=== PATIENT | female | born 1965 | race African-American/Black ===

== ENCOUNTER 2017-03-25 07:17 | Inpatient (IN) | payer OTHER ==
[2017-03-25 07:33] VITALS: BMI 48.9
--- NOTE | 2017-03-25 07:52 | PDOC ---
Attending Attestation - Resident Resident Name: JasonelizabethSyedRamon - ED Attending Attestation I have performed the following: I have examined & evaluated the patient, The case was reviewed & discussed with the resident, I agree w/resident's findings & plan, Exceptions are as noted - HPI HPI: 03/25/17 07:51 The patient is a 51-year-old female with a significant past medical history of HIV (on HAART with recent undetectable viral load), who presents to the emergency department with left lower extremity painful paresthesias for two months. No weakness. No fever. No rash. She states that the pain involves the entire left lower extremity extending from the toes to below the calf. It began gradually, and has been increasing in intensity. It is now constant. It is exacerbated by walking. It is relieved by rest, including hanging her foot off of the edge of the bed. She denies recent palpitations. 03/25/17 08:11 - Physicial Exam PE: 03/25/17 07:52 The patient is well-appearing and in no acute distress Vitals noted Left lower extremity is cooler than right lower extremity Capillary refill is slightly delayed in left lower extremity as compared to right lower extremity I feel that there is subtle decrease in hair growth on the left lower extremity as compared to the right lower extremity Dorsal pedal and posterior tibial pulses are not palpable on the right or left Faint doppler signals present on right but not left DP and PT 03/25/17 08:19 03/25/17 08:24 - Medical Decision Making 03/25/17 08:00 She has signs and symptoms consistent with intermittent claudication I do not this she has an acute occlusion This is likely worsening on chronic disease Will not heparinize at this time Will obtain labs and LE US 03/25/17 09:51 Labs noted including normal bicarbonate, normal anion gap, normal lactic acid, mildly elevated CK Her labs are not consistent with acute occlusion causing significant limb ischemia Will await US 03/25/17 10:16 Ultrasound noted, indicative of peripheral arterial occlusion in the posterior tibial artery Will obtain CTA to better define Will admit to medicine Vascular surgery is aware Clinical impression: Left lower extremity peripheral arterial occlusive disease with minimal limb ischemia Case discussed in detail with admitting provider including history, physical exam and ancillary studies. Admitting physician has assumed care for the patient, will follow all pending diagnostics and will complete the evaluation and treatment. 03/25/17 10:31 03/25/17 10:47 EKG noted: Normal sinus rhythm at 78, normal axis, normal intervals, no ST changes Discharge Disposition - Diagnosis Peripheral arterial occlusive disease - Discharge Dispostion Admit: Yes - Referrals - Patient Instructions - Post Discharge Activity
--- NOTE | 2017-03-25 08:35 | PDOC ---
History of Present Illness <Rolando Goncalves - Last Filed: 03/25/17 09:16> - General History Source: Patient Exam Limitations: No Limitations - History of Present Illness Initial Comments: 03/25/17 08:29 Ms. Oneal is a 51 year old female with a significant PMH of HIV, diabetes, and 38 pack year smoking history who presents to the emergency department with 2 months of burning pain to the top of her LLE. She reports pain only with movement and that it is fine at rest. Pain is alleviated by hanging her foot off of the bed. The patient denies chest pain, shortness of breath, headache and dizziness. Denies fever, chills, nausea, vomit, diarrhea and constipation. Denies dysuria, frequency, urgency and hematuria. Allergies: Shellfish Social history: years PCP: Dr. Galeas in the [place] 03/25/17 08:36 Timing/Duration: intermittent Severity: moderate Modifying Factors: improves with: movement Associated Symptoms: reports: denies symptoms Aspirin Received prior to arrival: Yes: no aspirin today Asa Contraindications(Core Measure): Yes: Other Beta Soco Contraindications(Core Measure): Yes: Not Prescribed Beta Soco Given by EMS(Core Measure): No Beta Soco Taken at Home(Core Measure): No Beta [place] Not Indicated at this Time(Core Measure): No <Ramon Xavier - Last Filed: 03/25/17 11:27> - General Chief Complaint: Pain Stated Complaint: LFT FOOT PAIN, SWELLING Time Seen by Provider: 03/25/17 07:42 Past History <Rolando Goncalves - Last Filed: 03/25/17 09:16> - Travel Traveled outside of the country in the last 30 days: No - Past Medical History Anemia: No Asthma: No Cancer: No Cardiac Disorders: No CVA: No COPD: No CHF: No Dementia: No Diabetes: No GI Disorders: No Disorders: No HTN: Yes Hypercholesterolemia: Yes HIV: Yes Liver Disease: No Seizures: No Thyroid Disease: No - Psycho/Social/Smoking Cessation Hx Suicidal Ideation: No Smoking History: Current every day smoker Have you smoked in the past 12 months: Yes Number of Cigarettes Smoked Daily: 20 Cigars Per Day: 0 Information on smoking cessation initiated: Yes 'Breaking Loose' booklet given: 03/25/17 Hx Alcohol Use: No Drug/Substance Use Hx: No Substance Use Type: None Hx Substance Use Treatment: No <Ramon Xavier - Last Filed: 03/25/17 11:27> - Past Medical History Allergies/Adverse Reactions: Allergies Allergy/AdvReac Type Severity Reaction Status Date / Time Shellfish Allergy Severe Swelling Verified 03/25/17 07:24 Home Medications: Ambulatory Orders Atorvastatin Ca [Lipitor] 20 mg PO HS 03/25/17 Bupropion HCl [Wellbutrin -] 100 mg PO BID 03/25/17 Calcium Carbonate/Vitamin D3 [Oyster Shell 500-Vit D3 200 Tb] 1 each PO DAILY Cholecalciferol (Vitamin D3) [Vitamin D3] 2,000 unit PO DAILY 03/25/17 Darunavir/Cobicistat [Prezcobix 800 mg-150 mg Tablet] 1 each PO DAILY 03/25/17 Emtricitabine/Tenofovir [Truvada] 1 tab PO DAILY 03/25/17 Ferrous Sulfate 325 mg PO DAILY 03/25/17 Folic Acid 0.8 mg PO DAILY 03/25/17 Mirtazapine 15 mg PO DAILY 03/25/17 Omeprazole 20 mg PO DAILY 03/25/17 Zolpidem Tartrate [Ambien] 10 mg PO HS 03/25/17 Review of Systems - Review of Systems Able to Perform ROS?: Yes Comments:: 03/25/17 08:37 GENERAL/CONSTITUTIONAL: No fever or chills. No weakness. HEAD, EYES, EARS, NOSE AND THROAT: No change in vision. No ear pain or discharge. No sore throat. CARDIOVASCULAR: No chest pain or shortness of breath RESPIRATORY: No cough, wheezing, or hemoptysis. GASTROINTESTINAL: No nausea, vomiting, diarrhea or constipation. GENITOURINARY: No dysuria, frequency, or change in urination. MUSCULOSKELETAL: +LLE pain with movement, alternating cold and burning SKIN: No rash NEUROLOGIC: No headache, vertigo, loss of consciousness, or change in strength/ sensation. ENDOCRINE: No increased thirst. No abnormal weight change HEMATOLOGIC/LYMPHATIC: Reported iron deficiency, no easy bleeding or history of blood clots. ALLERGIC/IMMUNOLOGIC: Shellfish allergy. 03/25/17 09:22 <Ramon Xavier - Last Filed: 03/25/17 11:27> *Physical Exam - Vital Signs Last Vital Signs Temp Pulse Resp BP Pulse Ox 98 F 91 H 18 155/92 97 03/25/17 07:22 03/25/17 07:22 03/25/17 07:22 03/25/17 07:22 03/25/17 07:22 <Rolando Goncalves - Last Filed: 03/25/17 09:16> - Vital Signs Last Vital Signs Temp Pulse Resp BP Pulse Ox 98 F 91 H 18 155/92 97 03/25/17 07:22 03/25/17 07:22 03/25/17 07:22 03/25/17 07:22 03/25/17 07:22 - Physical Exam Comments: 03/25/17 08:40 GENERAL: Awake, alert, and fully oriented, in no acute distress HEAD: No signs of trauma, normocephalic, atraumatic EYES: PERRLA, EOMI, sclera anicteric, conjunctiva clear ENT: Auricles normal inspection, hearing grossly normal, nares patent, oropharynx clear without exudates. Moist mucosa NECK: Normal ROM, supple, no lymphadenopathy, JVD, or masses LUNGS: No distress, speaks full sentences, clear to auscultation bilaterally HEART: Regular rate and rhythm, normal S1 and S2, no murmurs, rubs or gallops, peripheral pulses normal and equal bilaterally. ABDOMEN: Soft, nontender, normoactive bowel sounds. No guarding, no rebound. No masses EXTREMITIES: +LLE colder to touch than right and less hair than right. Doppler successful on RLE but unable to obtain pulse on LLE., Normal range of motion, no edema. No clubbing or cyanosis. NEUROLOGICAL: Cranial nerves II through XII grossly intact. Normal speech, normal gait, no focal sensorimotor deficits SKIN: Warm, Dry, normal turgor, no rashes or lesions noted. 03/25/17 09:22 <Ramon Xavier - Last Filed: 03/25/17 11:27> ED Treatment Course - LABORATORY CBC & Chemistry Diagram: 03/25/17 08:50 03/25/17 08:50 - ADDITIONAL ORDERS Additional order review: 03/25/17 08:50 RBC 3.64 MCV 84.5 MCHC 32.9 RDW 20.9 H D MPV 8.3 D Neutrophils % 51.9 Lymphocytes % 36.0 D Monocytes % 8.3 Eosinophils % 3.0 Basophils % 0.8 <Rolando Goncalves - Last Filed: 03/25/17 09:16> - LABORATORY CBC & Chemistry Diagram: 03/25/17 08:50 03/25/17 08:50 - RADIOLOGY Radiograph Interpretation: 03/25/17 11:26 IMPRESSION: Normal duplex arterial ultrasound in the right lower extremity. Normal duplex arterial ultrasound in the left lower extremity from the common femoral down to the popliteal artery. Questionable visualization of the left posterior tibial artery with no flow seen in the expected anatomic area of the posterior tibial artery for which further evaluation is recommended to rule out occlusion. A CT angiogram of the lower extremities would be the study of choice in view of the clinical history CT ordered, admit to surgery ordered. <Ramon Xavier - Last Filed: 03/25/17 11:27> Medical Decision Making - Medical Decision Making 03/25/17 09:14 Dr. Jayson Anugiano was called regarding the patient at 9:14am. [phone] <Rolando Goncalves - Last Filed: 03/25/17 09:16> - Medical Decision Making 03/25/17 08:43 Patient reports 2 months burning sensation with walking but no pain at rest. History of HIV, smoking, HTN, borderline diabetes. Initial thoughts peripheral neuropathy vs. PVD. Doppler unable to capture pulse on LLE. RLE weak pulse. Will order labs for DM / BMP / Lactate US Ordered and Vascular surgery consulted. Surgery asked for medicine admit, CT. Will follow recommendations. 03/25/17 09:50 Labs returned - non-anion gap metabolic acidosis noted. Normal bicarb, normal anion gap, normal lactic acid. Mildly elevated CK. Labs not consistent with acute ischemic event. 03/25/17 10:21 US results: IMPRESSION: Normal duplex arterial ultrasound in the right lower extremity. Normal duplex arterial ultrasound in the left lower extremity from the common femoral down to the popliteal artery. Questionable visualization of the left posterior tibial artery with no flow seen in the expected anatomic area of the posterior tibial artery for which further evaluation is recommended to rule out occlusion. A CT angiogram of the lower extremities would be the study of choice in view of the clinical history CT ordered, admit to surgery ordered. <Ramon Xavier - Last Filed: 03/25/17 11:27> *DC/Admit/Observation/Transfer <Rolando Goncalves - Last Filed: 03/25/17 09:16> - Attestations Physician Attestion: 03/25/17 09:23 I, Dr. Ramon Xavier, attest that this document has been prepared under my direction and personally reviewed by me in its entirety. I further attest, that it accurately reflects all work, treatment, procedures and medical decision -making performed by me. <Ramon Xavier - Last Filed: 03/25/17 11:27> Diagnosis at time of Disposition: Peripheral arterial occlusive disease - Referrals
[2017-03-25 08:59] LABS: BASOPHIL 0.8 % (0-2.0); MCH 27.8 pg (25.7-33.7); MCHC 32.9 g/dl (32.0-36.0); MEAN CELL VOLUME 84.5 fl (80-96); MEAN PLT VOLUME 8.3 fl (7.5-11.1); NEUTROPHILS 51.9 % (42.8-82.8); PLATELET COUNT 303 K/MM3 (134-434); RDW 20.9 % (11.6-15.6); WHITE BLOOD COUNT 4.8 K/mm3 (4.0-10.0)
[2017-03-25 09:22] LABS: ALBUMIN 3.4 g/dl (3.4-5.0); ANION GAP 6 (8-16); BILIRUBIN,TOTAL 0.2 mg/dL (0.2-1.0); CALCIUM 8.9 mg/dL (8.5-10.1); CO2 26 mmol/L (21-32); GLUCOSE,RANDOM 99 mg/dL (74-106); MAGNESIUM 1.9 mg/dL (1.8-2.4); SGOT/AST 23 U/L (15-37); SGPT/ALT 27 U/L (12-78); TOT PROT 7.4 g/dl (6.4-8.2)
[2017-03-25 09:25] LABS: ALK PHOS 111 U/L (45-117); TROPONIN I < 0.02 ng/ml (0.00-0.05)
[2017-03-25] MEDS ORDERED: SODIUM CHLORIDE 1,000 ML IV SCH (10:45)
[2017-03-25] MEDS ORDERED: ONDANSETRON 4 MG/2 ML VIAL IVPB PRN (12:47)
[2017-03-25] MEDS ORDERED: morphine CARPU-JECT 4 MG/1 ML DISP.SYRIN IVPUSH PRN (12:47)
[2017-03-25] MEDS ORDERED: SODIUM CHLORIDE 0.45% 1,000 ML IV SCH (13:00)
[2017-03-25] MEDS ORDERED: HEPARIN - 25,000 UNIT in SODIUM CHLORIDE 495 ML IV SCH (13:00)
[2017-03-25] MEDS ORDERED: INSULIN SLIDING SCALE (NOVOLOG) 1 VIAL SQ SCH ×2 (13:00→16:30)
[2017-03-25] MEDS ORDERED: HEPARIN NA (PORCINE) 5,000 UNITS/ML 1ML VIAL IVPUSH PRN ×2 (13:00)
[2017-03-25 13:18] LABS: ANISOCYTOSIS 1+; PLATELET ESTIMATE ADEQUATE (NORMAL)
--- NOTE | 2017-03-25 13:25 | HP ---
Admitting History and Physical - Primary Care Physician PCP: none - Admission Chief Complaint: Left lower extremity leg pain History of Present Illness: 51F with history of HTN HLD DM Smoker depression DORY presents to the ED with about a 6 month history of worsening LLE pain. Patient states worse when she walks and better with rest and elevation. She deneis nausea fever chills chest pain or shortness of breath. History Source: Patient Limitations to Obtaining History: No Limitations - Past Medical History ...LMP: 09/28/11 Additional Past Medical History: as listed above - Smoking History Smoking history: Current every day smoker Have you smoked in the past 12 months: Yes Aproximately how many cigarettes per day: 20 - Alcohol/Substance Use Hx Alcohol Use: No Home Medications - Allergies Allergies/Adverse Reactions: Allergies Allergy/AdvReac Type Severity Reaction Status Date / Time Shellfish Allergy Severe Swelling Verified 03/25/17 07:24 - Home Medications Home Medications: Ambulatory Orders Atorvastatin Ca [Lipitor] 20 mg PO HS 03/25/17 Bupropion HCl [Wellbutrin -] 150 mg PO BID 03/25/17 Calcium Carbonate/Vitamin D3 [Oyster Shell 500-Vit D3 200 Tb] 1 each PO DAILY Cholecalciferol (Vitamin D3) [Vitamin D3] 2,000 unit PO DAILY 03/25/17 Darunavir/Cobicistat [Prezcobix 800 mg-150 mg Tablet] 1 each PO DAILY 03/25/17 Emtricitabine/Tenofovir [Truvada] 1 tab PO DAILY 03/25/17 Ferrous Sulfate 325 mg PO DAILY 03/25/17 Folic Acid 0.8 mg PO DAILY 03/25/17 Mirtazapine 15 mg PO DAILY 03/25/17 Omeprazole 40 mg PO DAILY 03/25/17 Zolpidem Tartrate [Ambien] 10 mg PO HS 03/25/17 Physical Examination Vital Signs: Vital Signs Temperature 98 F 03/25/17 07:22 Pulse Rate 84 03/25/17 12:01 Respiratory Rate 18 03/25/17 12:01 Blood Pressure 145/87 03/25/17 12:01 O2 Sat by Pulse Oximetry (%) 98 03/25/17 12:01 Constitutional: Yes: No Distress, Obese Eyes: Yes: Conjunctiva Clear HENT: Yes: Atraumatic, Normocephalic Neck: Yes: Supple, Trachea Midline Cardiovascular: Yes: Regular Rate and Rhythm Respiratory: Yes: Regular, CTA Bilaterally Gastrointestinal: Yes: Soft Extremities: Yes: Delayed Capillary Refill (LLE), Other (tenderness of LLE foot to distal calf. slightly cooler LLE vs RLE.) Edema: No ...Motor Strength: WNL Labs: CBC, BMP 03/25/17 08:50 03/25/17 08:50 Imaging - Results Chest X-ray: Report Reviewed, Image Reviewed Ultrasound: Report Reviewed Assessment/Plan 51F with multiple medical probelsm presents to ED with concern for critical limb ischemia Problem List: critical limb ischemia DM HTN Smoker HLD Depression DORY Admit to inpatient services diabetic diet fingersticks ACHS Vascular surgery consult appreciated-for OR tomorrow NPO past midnight for OR tomorrow heparin gtt CTA Aorta with lower extremity run off Send type and screen restart home meds pain control Case discussed with medical team and attending full H&P to follow Visit type - Emergency Visit Emergency Visit: Yes Care time: The patient presented to the Emergency Department on the above date and was hospitalized for further evaluation of their emergent condition. - New Patient This patient is new to me today: Yes Date on this admission: 03/25/17 - Critical Care Critical Care patient: No
[2017-03-25] MEDS ORDERED: oxyCODONE HCL 5 MG TABLET PO PRN (13:53)
--- NOTE | 2017-03-25 14:23 | HP ---
CHIEF COMPLAINT: Left foot pain PCP: Dr. Natarajan HISTORY OF PRESENT ILLNESS: 51 y.o. F with PMH of HTN, HLD, 30 pack smoking hx, and HIV+ on HAART therapy complaining of 6-7 months of LLE pain that began in her toes and gradually travelled up to her lower calf. Pain has been increasing in intensity. She states at worst it's a 10/10 and at best a 5/10. Patient endorses improvement of the pain when elevating her LLE and states pain is worse when ambulating. She states she can walk about 1 block prior to the pain starting and has to wait 5 minutes before resuming walking. Patient denies any wounds or ulcers on the feet, any history of PAD, or any prior procedures done to the LLE. PAST MEDICAL HISTORY: HIV+ on HAART, HTN, HLD, DORY, 30 pack year smoker, Depression, and Chronic knee and back pain PAST SURGICAL HISTORY: None Social History: Smokin ppd for 30-40 years Alcohol: None Drugs: None Family History: None Allergies: NKDA Shellfish Allergy (Severe, Verified 03/25/17 07:24) Swelling HOME MEDICATIONS: Home Medications Medication Instructions Recorded Atorvastatin Ca [Lipitor] 20 mg PO HS 03/25/17 Bupropion HCl [Wellbutrin -] 150 mg PO BID 03/25/17 Calcium Carbonate/Vitamin D3 1 each PO DAILY 03/25/17 [Oyster Shell 500-Vit D3 200 Tb] Cholecalciferol (Vitamin D3) 2,000 unit PO DAILY 03/25/17 [Vitamin D3] Darunavir/Cobicistat [Prezcobix 1 each PO DAILY 03/25/17 800 mg-150 mg Tablet] Emtricitabine/Tenofovir [Truvada] 1 tab PO DAILY 03/25/17 Ferrous Sulfate 325 mg PO DAILY 03/25/17 Folic Acid 0.8 mg PO DAILY 03/25/17 Mirtazapine 15 mg PO DAILY 03/25/17 Omeprazole 40 mg PO DAILY 03/25/17 Zolpidem Tartrate [Ambien] 10 mg PO HS 03/25/17 REVIEW OF SYSTEMS CONSTITUTIONAL: Absent: fever, chills, diaphoresis, generalized weakness, malaise, loss of appetite, weight change HEENT: Absent: rhinorrhea, nasal congestion, throat pain, throat swelling, difficulty swallowing, mouth swelling, ear pain, eye pain, visual changes CARDIOVASCULAR: Absent: chest pain, syncope, palpitations, irregular heart rate, lightheadedness , peripheral edema RESPIRATORY: Absent: cough, shortness of breath, dyspnea with exertion, orthopnea, wheezing, stridor, hemoptysis GASTROINTESTINAL: Absent: abdominal pain, abdominal distension, nausea, vomiting, diarrhea, constipation, melena, hematochezia GENITOURINARY: Absent: dysuria, frequency, urgency, hesitancy, hematuria, flank pain, genital pain MUSCULOSKELETAL: Absent: joint swelling, back pain, neck pain Positive: Chronic back and knee pain SKIN: Absent: rash, itching, pallor HEMATOLOGIC/IMMUNOLOGIC: Absent: easy bleeding, easy bruising, lymphadenopathy, frequent infections ENDOCRINE: Absent: unexplained weight gain, unexplained weight loss, heat intolerance, cold intolerance NEUROLOGIC: Absent: headache, focal weakness or paresthesias, dizziness, unsteady gait, seizure, mental status changes, bladder or bowel incontinence PSYCHIATRIC: Absent: suicidal or homicidal ideation, hallucinations. Positive: Anxiety, Depression PHYSICAL EXAMINATION Vital Signs - 24 hr 03/25/17 03/25/17 03/25/17 07:22 12:01 13:03 Temperature 98 F 98 F Pulse Rate 91 H 80 Pulse Rate [ 84 Apical] Respiratory 18 18 18 Rate Blood Pressure 155/92 135/68 Blood Pressure 145/87 [Left Arm] O2 Sat by Pulse 97 98 Oximetry (%) GENERAL: Awake, alert, and fully oriented, in no acute distress. HEAD: Normal with no signs of trauma. EYES: extraocular movements intact, sclera anicteric, conjunctiva clear. EARS, NOSE, THROAT: oropharynx clear without exudates. Moist mucous membranes. NECK: Normal range of motion, supple without lymphadenopathy, JVD, or masses. No Carotid Bruits LUNGS: Breath sounds equal, clear to auscultation bilaterally. No wheezes, and no crackles. No accessory muscle use. HEART: Regular rate and rhythm, normal S1 and S2 without murmur, rub or gallop. ABDOMEN: Soft, nontender, not distended, normoactive bowel sounds, no guarding, no rebound, no masses. No hepatomegaly or splenomegaly. MUSCULOSKELETAL: Normal range of motion at all joints. No bony deformities or tenderness. LOWER EXTREMITIES: No pulses at DP and PT b/l. NEUROLOGICAL: RLE, LLE: 5/5 strength, sensations intact, 2+ reflexes PSYCHIATRIC: Cooperative. Good eye contact. Appropriate mood and affect. SKIN: Hyperpigmentation of LLE distal to calf, LLE with decreased cap refill compared to RLE Laboratory Results - last 24 hr 03/25/17 03/25/17 03/25/17 08:50 08:50 08:50 WBC 4.8 RBC 3.64 Hgb 10.1 L Hct 30.7 L MCV 84.5 MCHC 32.9 RDW 20.9 H D Plt Count 303 D MPV 8.3 D Neutrophils % 51.9 Lymphocytes % 36.0 D Monocytes % 8.3 Eosinophils % 3.0 Basophils % 0.8 Platelet Estimate Adequate Anisocytosis 1+ INR 1.00 PTT (Actin FS) 28.0 Sodium 143 Potassium 3.8 Chloride 111 H Carbon Dioxide 26 Anion Gap 6 L BUN 9 D Creatinine 1.0 D Creat Clearance w eGFR 58.45 Random Glucose 99 D Hemoglobin A1c % Lactic Acid Calcium 8.9 Magnesium 1.9 Total Bilirubin 0.2 D AST 23 ALT 27 Alkaline Phosphatase 111 D Creatine Kinase 260 H CK-MB (CK-2) < 1.0 Troponin I < 0.02 Total Protein 7.4 Albumin 3.4 03/25/17 03/25/17 08:50 13:40 WBC RBC Hgb Hct MCV MCHC RDW Plt Count MPV Neutrophils % Lymphocytes % Monocytes % Eosinophils % Basophils % Platelet Estimate Anisocytosis INR PTT (Actin FS) Sodium Potassium Chloride Carbon Dioxide Anion Gap BUN Creatinine Creat Clearance w eGFR Random Glucose Hemoglobin A1c % 6.1 H D Lactic Acid 1.3 Calcium Magnesium Total Bilirubin AST ALT Alkaline Phosphatase Creatine Kinase CK-MB (CK-2) Troponin I Total Protein Albumin Imaging: Duplex Scan: -Normal RLE -Normal LLE from common femoral to popliteal with questionable flow distal to L posterior tibial CXR: Negative EKG: NSR ASSESSMENT/PLAN: 51 y.o. F with multiple medical comorbidities admitted with concern for critical limb ischemia. 1. Critical limb ischemia/ Peripheral arterial disease -6-7 month history of claudication -Multiple cardiovascular comorbidities -Duplex scan concerning -CTA report pending Plan: -Admit to Med/Surg -Angio in the AM per Dr. Anguiano -Type and Screen -PT/INR -Oxycodone 15 mg Q8H PRN 2. HTN -Controlled at home on meds -Patient unsure of meds today, pharmacy closed Plan: -Will monitor BP and add medications if necessary 3. DORY -Hgb of 10.1 Plan: -Restart home ferrous sulfate 325 mg PO daily 4. HIV+ -On HAART therapy at home Plan: -Restart Truvada 1 tab PO daily -Instructed patient to get home meds for tomorrow (Prezcobix 800-150 mg and Tivicay 50 mg) 5. Knee/Back pain -Chronic Plan: -Oxycodone 15mg Q8h PRN 6. HLD -On lipitor 20 mg at home Plan: -Due to risk factors and symptoms will start Lipitor 40 mg PO daily 7. Depression -Stable Plan: -Start home dose of Bupropion 150 mg PO BID 8. FEN/GI Plan: -Low Sodium Diet -NPO after midnight 9. PPX Plan: SCD on R leg Visit type - Emergency Visit Emergency Visit: Yes Care time: The patient presented to the Emergency Department on the above date and was hospitalized for further evaluation of their emergent condition. - New Patient This patient is new to me today: Yes Date on this admission: 03/25/17 - Critical Care Critical Care patient: No
--- NOTE | 2017-03-25 14:24 | CONSULT ---
Consult - Past Medical History ...LMP: 09/28/11 ...: No - Alcohol/Substance Use Hx Alcohol Use: No - Smoking History Smoking history: Current every day smoker Have you smoked in the past 12 months: Yes Aproximately how many cigarettes per day: 20 Home Medications - Allergies Allergies/Adverse Reactions: Allergies Allergy/AdvReac Type Severity Reaction Status Date / Time Shellfish Allergy Severe Swelling Verified 03/25/17 07:24 - Home Medications Home Medications: Ambulatory Orders Atorvastatin Ca [Lipitor] 20 mg PO HS 03/25/17 Bupropion HCl [Wellbutrin -] 150 mg PO BID 03/25/17 Calcium Carbonate/Vitamin D3 [Oyster Shell 500-Vit D3 200 Tb] 1 each PO DAILY Cholecalciferol (Vitamin D3) [Vitamin D3] 2,000 unit PO DAILY 03/25/17 Darunavir/Cobicistat [Prezcobix 800 mg-150 mg Tablet] 1 each PO DAILY 03/25/17 Emtricitabine/Tenofovir [Truvada] 1 tab PO DAILY 03/25/17 Ferrous Sulfate 325 mg PO DAILY 03/25/17 Folic Acid 0.8 mg PO DAILY 03/25/17 Mirtazapine 15 mg PO DAILY 03/25/17 Omeprazole 40 mg PO DAILY 03/25/17 Zolpidem Tartrate [Ambien] 10 mg PO HS 03/25/17 Physical Exam Vital Signs: Vital Signs Temperature 98 F 03/25/17 13:03 Pulse Rate 80 03/25/17 13:03 Respiratory Rate 18 03/25/17 13:03 Blood Pressure 135/68 03/25/17 13:03 O2 Sat by Pulse Oximetry (%) 98 03/25/17 12:01 Labs: CBC, BMP 03/25/17 08:50 03/25/17 08:50 Assessment/Plan Vascular Surgery The patient is a 51-year-old female with a significant past medical history of HIV (on HAART with recent undetectable viral load), who presents to the emergency department with left lower extremity painful paresthesias for two months. No weakness. No fever. No rash. She states that the pain involves the entire left lower extremity extending from the toes to below the calf. It began gradually, and has been increasing in intensity. It is now constant. It is exacerbated by walking. It is relieved by rest, including hanging her foot off of the edge of the bed. She denies recent palpitations. PE Head - NC/AT Lung - CTA heart - RRR abd - soft,nt,nd ext - right leg -- palpable DP pulse Left leg - faint dp pulse. cool to touch motor and sensory intact Pt is a has been smoking for 40 years - 1 ppd A/P Left lower ext claudication 1. CTA done - results pending Will do angiogram in am Jayson Anguiano DO
--- NOTE | 2017-03-25 16:33 | PN ---
Teaching Attending Note Name of Resident: Iftikhar Aponte ATTENDING PHYSICIAN STATEMENT I saw and evaluated the patient. I reviewed the resident's note and discussed the case with the resident. I agree with the resident's findings and plan as documented. SUBJECTIVE:51yo F c/o LLE pain and parathesia for 6-7months. states that she is only able to walk several feet due to the pain and has to rest for 10 mins for the pain to be relieved. states she never went to see a doctor because she was too scared to hear what it might be causing it. states no pain on manipulation of the foot. denies CP, SOB,fever, chills, N/V/C/D, hair loss, skin changes, worse when walking up a hill OBJECTIVE: Last Vital Signs Temp Pulse Resp BP Pulse Ox 98 F 80 18 135/68 98 03/25/17 13:03 03/25/17 13:03 03/25/17 13:03 03/25/17 13:03 03/25/17 12:01 General NAD CV S1 S2 RRR no murmur/rub/gallop Lungs CTA B/L no wheezing/rales/rhonchi abdomen soft NT/ND Extremities LLE warm, non tender on palpation, full ROM of foot. sensation in foot B/L intact. DP pulse on doppler ASSESSMENT AND PLAN: 51yo F with PMH HIV on HARRT, HTN, dyslipidemia and morbid obesity presented to the ER and was admitted with LLE arterial ischemia 1. Acute on Chronic arterial ischemia- medicine admission. duplex negative for DVT. CTA done and awaiting results. start heparin ggt, NPO tonight for angiogram in the AM. vascular consulted and aware. pain control 2. HIV on HARRT- as per pt last VL was undetectable. cont harrt therapy 3. HTN- controlled. cont medication 4. morbid obesity- BMI 48. counseled on need for weight loss, bariatric referal as outpatient 5. continuous nicotine dependence- counseled on risks of smoking and that current situation is likely related. counseled on risks of smoking. nicotine patch offered 6. stated she wanted to leave because shes too scared to hear results of CTA and does not want to go through with the procedure. informed her or risk of leaving includes but limited to loss of limb
[2017-03-25] MEDS: buPROPion HCL 75 MG TABLET PO SCH ×2 (21:04→21:14)
[2017-03-25 21:42] VITALS: BP 135/83; PULSE 91; TEMP 98.9
[2017-03-25] MEDS ORDERED: ATORVASTATIN CA 40 MG TABLET (FP) PO SCH (22:00)
[2017-03-25] MEDS ORDERED: ZOLPIDEM TARTRATE 5 MG TABLET PO PRN (22:00)
[2017-03-26] MEDS ORDERED: morphine CARPU-JECT 2 MG/1 ML DISP.SYRIN IVPUSH ONE (04:32)
--- NOTE | 2017-03-26 04:59 | HOSP ---
Subjective - Review of Symptoms Events since last encounter: PATIENT ADAMENTLY REFUSES HOSPITALIZATION AND WANTS TO LEAVE AGAINST MEDICAL ADVICE. I EXPLAINED TO PATIENT THAT AGAINST MEDICAL ADVICE IS DANGEROUS AND CAN LEAD TO WORSENING OF CONDITION, PERMANENT DISABILITY, AND EVEN . I USED LAY TERMINOLOGY. I ANSWERED ALL QUESTIONS. ITS CLEAR TO ME THAT SHE UNDERSTANDS THE RISKS AND BENEFITS OF CONTINUOUS HOSPITAL STAY AND LEAVING AGAINST MEDICAL ADVISE. SHE HAS THE CAPACITY TO MAKE HER OWN DECISIONS. I TOLD HER TO FOLLOW UP WITH HER PRIMARY MEDICAL DOCTOR TOMORROW AND RETURN TO THE EMERGENCY DEPARTMENT IF SYMPTOMS WORSEN. SHE REFUSED TO SIGN AMA PAPERS, AND LEFT THE HOSPITAL. Amber Pemberton MD Physical Examination Vital Signs: Vital Signs Temperature 98.9 F 03/25/17 21:40 Pulse Rate 91 H 03/25/17 21:40 Respiratory Rate 20 03/25/17 21:40 Blood Pressure 135/83 03/25/17 21:40 O2 Sat by Pulse Oximetry (%) 98 03/25/17 12:01 Labs: CBC, BMP 03/25/17 08:50 03/25/17 08:50 Visit type - Emergency Visit Emergency Visit: No - New Patient This patient is new to me today: Yes Date on this admission: 03/26/17 - Critical Care Critical Care patient: No
[2017-03-26] MEDS ORDERED: FERROUS SO4 325 MG TABLET (FP) PO SCH (10:00)
[2017-03-26] MEDS ORDERED: PANTOPRAZOLE 40 MG TABLET (FP) PO SCH (10:00)
[2017-03-26] MEDS ORDERED: CALCIUM 500MG/VIT-D 200 UNITS COMBO TABLET (FP) PO SCH (10:00)
[2017-03-26] MEDS ORDERED: EMTRICITABINE 200MG/TENOFOVIR 300MG PO SCH (10:00)
[2017-03-26] MEDS ORDERED: CHOLECALCIFEROL (VITAMIN D3) 1,000 UNIT TABLET (FP) PO SCH (10:00)
[2017-03-26] MEDS ORDERED: FOLIC ACID 1 MG TABLET (FP) PO SCH (10:00)
[2017-03-26] MEDS ORDERED: PATIENT'S OWN MEDICATION (NON-FORMULARY) (Darunavir/Cobicistat [Prezcobix 800 Mg-150 Mg Ta PO SCH (10:00)
--- NOTE | 2017-03-26 13:08 | DS ---
Physical Exam: SUBJECTIVE: Patient seen and examined Patient eloped against medical advice overnight. OBJECTIVE: Vital Signs Period Temp Pulse Resp BP Sys/Love Pulse Ox Last 24 Hr 98.9 F 91 20-20 135/83 PHYSICAL EXAM LABS Laboratory Results - last 24 hr 03/25/17 03/25/17 03/25/17 08:50 13:40 13:40 WBC 4.8 RBC 3.64 Hgb 10.1 L Hct 30.7 L MCV 84.5 MCHC 32.9 RDW 20.9 H D Plt Count 303 D MPV 8.3 D Neutrophils % 51.9 Lymphocytes % 36.0 D Monocytes % 8.3 Eosinophils % 3.0 Basophils % 0.8 Platelet Estimate Adequate Anisocytosis 1+ Hemoglobin A1c % 6.1 H D Blood Type A POSITIVE Antibody Screen Negative HOSPITAL COURSE: Date of Admission:03/25/17 Date of Discharge: 03/26/17 51 year old female admitted for acute on chronic left lower extremity ischemia. U/S doppler showed decrease flow in left lower extremity. CTA was performed and showed a short segment of high grade stenosis in the left popliteal artery measuring 3 cm in length with a filling defect. There was also a short segment of stenosis in the right posterior tibial and peroneal arteries distal to right tibial peroneal trunk. She was admitted to med-surg and was prepped for angiogram in the morning by Dr. Jayson Anguiano. She was very anxious about the procedure and wanted to leave. Risks and benefits were discussed with her regarding leaving AMA, which includes loss of limb. She was told that if she leaves to f/u with here PCP and return to hospital if symptoms persist. Patient eloped overnight. Minutes to complete discharge: 30 Discharge Summary Reason For Visit: PERIPHERAL ARTERIAL OCCLUSIVE DISEASE - Instructions Referrals: STAFF,NOT ON [Primary Care Provider] - Disposition: ELOPED - Home Medications Comprehensive Discharge Medication List: Ambulatory Orders Atorvastatin Ca [Lipitor] 20 mg PO HS 03/25/17 Bupropion HCl [Wellbutrin -] 150 mg PO BID 03/25/17 Calcium Carbonate/Vitamin D3 [Oyster Shell 500-Vit D3 200 Tb] 1 each PO DAILY Cholecalciferol (Vitamin D3) [Vitamin D3] 2,000 unit PO DAILY 03/25/17 Darunavir/Cobicistat [Prezcobix 800 mg-150 mg Tablet] 1 each PO DAILY 03/25/17 Emtricitabine/Tenofovir [Truvada] 1 tab PO DAILY 03/25/17 Ferrous Sulfate 325 mg PO DAILY 03/25/17 Folic Acid 0.8 mg PO DAILY 03/25/17 Mirtazapine 15 mg PO DAILY 03/25/17 Omeprazole 40 mg PO DAILY 03/25/17 Zolpidem Tartrate [Ambien] 10 mg PO HS 03/25/17 This patient is new to me today: No Emergency Visit: No Critical Care patient: No - Discharge Referral Referred to [facility] No
[2017-03-26] MEDS ORDERED: MIRTAZAPINE 15 MG TABLET (FP) PO SCH (22:00)
== END 2017-03-26 04:56 | disposition left against medical advice (07) | DRG 861 ==
LOC: JER 07:17 → JASUSAT 10:15 → J6S 12:52 → JASUSAT 12:53 → J6S 13:35 → JASUSAT 03-26 04:56
PROVIDERS: ADMIT Internal Medicine; ATTEND Internal Medicine
PROC: B40JYZZ Plain Radiography of Other Lower Arteries using Other Contrast (ICD-10-PCS; principal; 2017-03-25)
DX: Z53.29 Procedure and treatment not carried out because of patient's decision for other reasons (principal)
CPT/HCPCS: 36415; 71010-TC; 75635-TC; 80053; 82550; 82553; 83036; 83605; 83735; 84484; 85025; 85610; 85730; 86850; 86900; 86901; 93925-TC; 99283-25